=== PATIENT | female | born 1970 | race African-American/Black ===

== ENCOUNTER 2019-09-03 15:15 | IRF | payer OTHER, SELFPAY ==
--- NOTE | 2019-09-03 15:18 | ADMGEN ---
This patient, Ani Roger, was admitted to [facility] Room 221-01. Patient/family oriented to hospital policies and general routines including ID bracelet, bed and alarms, visiting hours, pain management, procedures, bathroom and other care routines, personal items, smoking policy, room service/diet, and visiting hours. Valuables list has been completed. Information on how to activate the Rapid Response Team has been discussed. Patient/Family are encouraged to report perceived risks to care and to ask questions if they do not understand what they are told or what they should do.
[2019-09-03 15:42] VITALS: BP 150/103; PULSE 96; RESP 18; TEMP 37.3; O2SAT 100
[2019-09-03 21:19] VITALS: BP 129/94; PULSE 104; RESP 16; TEMP 37.6; O2SAT 99
[2019-09-03 22:35] VITALS: BMI 29.3
[2019-09-04 05:14] LABS: Basophils Percent Auto 0.2 % (0.2-1.2); Eosinophils Absolute Auto 0.4 K/mm3 (0-0.3); Eosinophils Percent Auto 7.7 % (0-4.4); Hematocrit 37.5 % (37.0-47.0); Hemoglobin 12.5 g/dL (12.0-15.0); Immature Granulocyte Absolute 0.01 K/mm3 (0.00-0.031); Immature Granulocyte Percent A 0.2 % (0-0.5); Lymphocytes Absolute Auto 1.85 K/mm3 (0.9-3.2); Lymphocytes Percent Auto 36.4 % (18.3-44.2); Mean Corpuscular HGB Conc 33.3 g/dl (32-36); Mean Corpuscular Hemoglobin 27.7 pg (26-34); Mean Corpuscular Volume 83.1 fl (80-100); Mean Platelet Volume 9.2 fl (7.4-10.4); Monocytes Absolute Auto 0.6 K/mm3 (0.1-0.6); Monocytes Percent Auto 12.4 % (2.6-8.5); Neutrophils Absolute Auto 2.2 K/mm3 (1.3-6.7); Neutrophils Percent Auto 43.1 % (45.5-73.1); Platelet Count Result 317 k/mm3 (150-375); Red Blood Count 4.51 M/mm3 (4.2-5.4); White Blood Count 5.1 K/mm3 (4.5-10.0)
[2019-09-04 05:39] LABS: Blood Urea Nitrogen 25 mg/dL (7-17); Calcium 9.7 mg/dL (8.4-10.2); Carbon Dioxide 24 mmol/L (22-30); Chloride 106 mmol/L (98-107); Cholesterol 166 mg/dL (0-200); Estimated CRCL calculation 52 ml/min; Estimated Glomerular Filt Rate 53; Glucose 105 mg/dL (65-105); HDL Direct 43 mg/dL; Potassium 4.2 mmol/L (3.4-5.0); Sodium 137 mmol/L (137-145); Triglycerides 90 mg/dL (<150)
[2019-09-04 05:50] LABS: LDL Cholesterol Direct 90 mg/dL
[2019-09-04 06:00] VITALS: BP 123/88; PULSE 72; RESP 20; TEMP 36.2; O2SAT 100
[2019-09-04] MEDS: ASPIRIN 325 MG TABLET PO (09:46)
[2019-09-04] MEDS: AMLODIPINE BESYLATE 5 MG TABLET PO (09:46)
[2019-09-04] MEDS: FERROUS SULFATE 324 MG TABLET PO (09:46)
[2019-09-04] MEDS: ATORVASTATIN 20 MG TABLET PO (09:46)
[2019-09-04] MEDS: PANTOPRAZOLE 40 MG TABLET PO (09:47)
[2019-09-04] MEDS: THIAMINE HCL 100 MG TABLET PO (09:47)
--- NOTE | 2019-09-04 11:58 | REHAB_ITS ---
DATE OF SERVICE: 09/04/2019 This 48 years old right-handed female has been admitted to the rehab of [facility] with the primary rehab impairment category of a stroke and the etiological diagnosis of right frontoparietal distribution stroke. The patient was seen [id number] at 10:15 a.m. on 09/04/2019. HISTORY OF PRESENT ILLNESS: This 48 years old right-handed female with comorbid condition of 1. Bronchial asthma. 2. Hypertension. 3. Seizure disorder. 4. Alcoholism. Presented to [facility] on 08/28/2019, subsequent to fall around 2:30 a.m. She had crawled to her bedroom and kept lying on the floor. In the morning, she called her primary care physician who advised her to present to the hospital. EMS report responded and took her to [facility] where CT scan was done, which was reportedly abnormal. She was transferred to [facility] for further stroke evaluation, there MRI was consistent with acute infarction involving the high right posterior frontal and parietal cortices. Duplex study of the carotid was negative for any significant stenosis. Echocardiogram documented 75% ejection fraction and no PFO. Neurology Service was consulted and allowed for permissive hypertension. She was started on aspirin and statin. She was continued on hydrochlorothiazide and losartan. She was counseled on alcohol and tobacco cessation. She was diagnosed with a urinary tract infection, was started on Cipro. She passed her swallowing test and was on regular diet with thin liquids. Physical examination continued to reveal left-sided weakness, decreased gross motor control, impaired balance. She was discharged to rehab on Lovenox for DVT prophylaxis. The patient has not traveled outside the [place] or had contact with someone who is ill that has traveled outside the [place] in the past 21 days. The patient has not traveled to an area of the [place] that is experiencing known transmission of the coronavirus and has not had close personal contact with anyone that has. The patient does not have a fever, does not have experience any lower respiratory illness symptoms. Therapy was initiated at the acute care facility and the patient was transferred to from [facility] on 09/03/2019. SURGERY OR FALL: The patient has had no major surgery in the last 100 days prior to admission. She has had fall in the past year, particularly for this admission due to stroke, but had no injury. PAST MEDICAL HISTORY: Bronchial asthma, uncontrolled hypertension, stroke, hyperlipidemia, tobacco abuse, and alcohol abuse. PAST SURGICAL HISTORY: None. SOCIAL HISTORY: The patient lives with her aunt in a one-level home with the level entrance. She was completely independent previously with no assistive device. Her aunt is home most of the time. The patient fell as a result of a stroke, but had no falls prior to this. She has no major surgery history. Current everyday smoker and binge drink alcohol last time over a month ago. FAMILY HISTORY: Mother has COPD. Father, hypertension and stroke. PRIOR LEVEL OF FUNCTION: Eating was independent. Oral care was independent. Toilet hygiene was independent. Shower-bathing was independent. Upper body was independent. Lower body was independent. Footwear was independent. Rolling left and right was independent. Sit to lying was independent. Lying to sitting was independent. [id number] is independent. [id number]-el-[id number] transfer independent. Toilet transfer independent. The patient was previously ambulating independently without a device. She was able to complete 5 stairs independently. CURRENT LEVEL OF FUNCTION: Eating is independent. She required partial and moderate assistance for oral care, toileting hygiene, shower and bathing, upper body,
[2019-09-04 14:00] VITALS: BP 138/76; PULSE 86; RESP 18; TEMP 36.6; O2SAT 100
[2019-09-04] MEDS: TRAMADOL HCL 50 MG TABLET PO (17:20)
[2019-09-04 22:00] VITALS: BP 106/62; PULSE 85; RESP 18; TEMP 36.4; O2SAT 100
[2019-09-05 06:00] VITALS: BP 115/80; PULSE 77; RESP 18; TEMP 36.4; O2SAT 99
[2019-09-05] MEDS: FERROUS SULFATE 324 MG TABLET PO (09:11)
[2019-09-05] MEDS: TRAMADOL HCL 50 MG TABLET PO ×2 (09:11→20:17)
[2019-09-05] MEDS: ATORVASTATIN 20 MG TABLET PO (09:12)
[2019-09-05] MEDS: THIAMINE HCL 100 MG TABLET PO (09:12)
[2019-09-05] MEDS: AMLODIPINE BESYLATE 5 MG TABLET PO (09:12)
[2019-09-05] MEDS: PANTOPRAZOLE 40 MG TABLET PO (09:12)
[2019-09-05] MEDS: ASPIRIN 325 MG TABLET PO (09:12)
[2019-09-05 14:00] VITALS: BP 128/72; PULSE 80; RESP 18; TEMP 36.7; O2SAT 100
[2019-09-05 20:00] VITALS: PULSE 80; RESP 18; O2SAT 100
[2019-09-05 22:00] VITALS: BP 117/77; PULSE 89; RESP 20; TEMP 36.7; O2SAT 99
[2019-09-06] MEDS: TRAMADOL HCL 50 MG TABLET PO ×2 (05:31→19:53)
[2019-09-06 06:00] VITALS: BP 114/71; PULSE 98; RESP 20; TEMP 36.9; O2SAT 100
[2019-09-06] MEDS: ASPIRIN 325 MG TABLET PO (08:51)
[2019-09-06] MEDS: AMLODIPINE BESYLATE 5 MG TABLET PO (08:51)
[2019-09-06] MEDS: FERROUS SULFATE 324 MG TABLET PO (08:51)
[2019-09-06] MEDS: THIAMINE HCL 100 MG TABLET PO (08:51)
[2019-09-06] MEDS: PANTOPRAZOLE 40 MG TABLET PO (08:51)
[2019-09-06] MEDS: ATORVASTATIN 20 MG TABLET PO (08:51)
--- NOTE | 2019-09-06 11:06 | WPDNEURORHBP ---
Subjective Date/time seen: right FP stroke with Hypertension and SD also [id number]/13/20 11:06 Review of Systems Review of Systems: All systems reviewed & are unremarkable except as noted in HPI and below Functional Status Ambulation Ability Ability to Ambulate 10 Feet: Minimum Assistance X 1 Ability to Ambulate 50 Feet With 2 Turns: Minimum Assistance X 1 Ability to Ambulate 150 Feet: Minimum Assistance X 1 Ambulation Assistive Devices: Cane Transfers Ability Ability to Transfer In/Out of Chair: Contact Guard Exam Const: General: cooperative, comfortable and no acute distress Eyes: General: appearance normal, both eyes and all related structures Neck: Neck: normal visual inspection, full ROM and no lymphadenopathy Carotids: normal carotid upstroke and bounding pulses Lymphatic: no lymphadenopathy noted Chest: Chest palpation & inspection: normal palpation of entire chest wall Resp: Effort & Inspection: normal respiratory effort and able to speak in complete sentences Auscultation: clear to auscultation bilaterally Cardio: Rate: regular rate Rhythm: regular rhythm GI: Auscultation: normal bowel sounds Skin: General skin exam: no rashes or lesions noted Neuro: General: patient oriented x3 and moves all extremities Cranial nerves: Yes CN's II-XII intact bilaterally, Yes Nystagmus not present, Yes Normal facial strength present, Yes Midline tongue present, Yes Symmetric palate elevation present, Yes Normal hearing present, Yes Ability to bilaterally rotate head present and Yes Ability to bilaterally elevate shoulders present Cognition (Neuro): normal cognition Speech: normal speech Gait exam (Neuro): Other gait observations present Motor exam (neuro): Abnormal motor strength present Plantar Reflex Responses: downgoing: right and upgoing (positive Babinski): left Coordination: [id number] test normal Psych: Appearance: grossly normal Affect: normal affect Attitude: cooperative Thought process: Normal thought process present Thought content: Yes Normal thought content present Insight: Fair insight present (Psych) Judgement: Fair judgement present (Psych) Objective Data Vital Signs Vital Signs: Vital Signs - 24 hr 09/05/19 14:00 09/05/19 20:00 09/05/19 22:00 Temperature 36.7 C 36.7 C Pulse Rate 80 80 89 Respiratory Rate 18 18 20 Blood Pressure 128/72 117/77 Pulse Oximetry 100 100 99 09/06/19 06:00 Temperature 36.9 C Pulse Rate 98 Respiratory Rate 20 Blood Pressure 114/71 Pulse Oximetry 100 Intake/Output Intake/Output: Intake & Output 09/03/19 09/04/19 09/05/19 09/06/19 23:59 23:59 23:59 23:59 Intake Total 240 720 720 240 Balance 240 720 720 240 Meds/Results Medications: Active Medications Generic Name Dose Route Start Last Admin Trade Name Freq PRN Reason Stop Dose Admin Albuterol 2 puff 09/03/19 16:24 Proventil Hfa INHALATION Q4H PRN Wheezing Amlodipine Besylate 5 mg 09/04/19 09:00 09/06/19 08:51 Norvasc PO 5 mg DAILY JOSE Administration Aspirin 325 mg 09/04/19 09:00 09/06/19 08:51 Aspirin PO 325 mg DAILY JOSE Administration Atorvastatin Calcium 20 mg 09/04/19 09:00 09/06/19 08:51 Lipitor PO 20 mg DAILY JOSE Administration Ferrous Sulfate 324 mg 09/04/19 08:00 09/06/19 08:51 Ferrous Sulfate PO 324 mg DAILY@0800 JOSE Administration Pantoprazole Sodium 40 mg 09/04/19 09:00 09/06/19 08:51 Protonix PO 40 mg QAM JOSE Administration Thiamine HCl 100 mg 09/04/19 09:00 09/06/19 08:51 Vitamin B-1 PO 100 mg DAILY JOSE Administration Tramadol HCl 50 mg 09/03/19 16:24 09/06/19 05:31 Ultram PO 50 mg Q6H PRN Administration Pain Progress Note: A&P Assessment and Plan (1) Stroke: Code(s): I63.9 - Cerebral infarction, unspecified Status: Acute (2) Hypertension: Code(s): I10 - Essential (primary) hypertension Status: Acute (3) Seizure disorder:
[2019-09-06 12:38] VITALS: BMI 29.3
[2019-09-06 14:00] VITALS: BP 134/89; PULSE 102; RESP 20; TEMP 36.2; O2SAT 100
--- NOTE | 2019-09-06 16:17 | RPD ---
INDIVIDUALIZED PLAN OF CARE FOR Ani Roger Brief Synthesis of Pre-Admission Screen, Post-Admission Evaluation and Therapy Evaluations: The patient presents to rehab with a right frontoparietal distribution stroke. Comorbidities include uncontrolled hypertension, nicotine addiction, binge alcohol drinking with seizure, asthma, klebsiella urinary tract infection, left-sided numbness and weakness. The patient needs physician monitoring and treatment of uncontrolled hypertension, monitoring for adverse reactions to new medications, and monitoring for infection. The patient requires nursing services for frequent neuro checks, anticoagulation therapy, medication management and education, pressure relief and skin care management, monitoring of labs, and fall/safety precautions. Deficits include:ADLs, Balance, Endurance, Family Training/Education, Mobility, Pain Management, ROM, Safety, Strength, and Transfers. Bindery Chief/Case Management for: Discharge Planning and Patient/Family Counseling Physical Therapy: 5 days per week for 90 minutes. Treatments may include: Therapeutic Exercise, Gait Training, Neuromuscular Re-education, Transfer Training, Community Reintegration, Bed Mobility, Patient/Family Education, Wheelchair Mobility Group Therapy/Concurrent Therapy Rationales: -Improve attention span during functional activities in a distracted environment. -Enhance problem solving and/or adequate judgment skills during functional activities in a distracted environment. -Promote increased safety awareness in a distracted environment to reduce fall risk with functional tasks, transfers, and ambulation to allow a more safe, self-sufficient return to the home environment. -Improve dynamic balance skills to promote safety and independence with functional activities in a distracted environment for maximum gain. Occupational Therapy: 5 days per week for 90 minutes. Treatments may include: Therapeutic Exercise, Therapeutic Activity, Cognitive Training, Self-Care Transfer Training, Community Reintegration, Home Management, Patient/Family Education, Wheelchair Mobility Training, Energy Conservation Training Group Therapy/Concurrent Therapy Rationales: -Allow therapist to observe and teach generalization and carry-over of skills learned in individual therapy. -Enhance problem solving and sequencing skills during therapeutic activities in a distracted environment. -Promote increased safety awareness in a realistic setting to reduce fall risk with functional tasks due to visual and verbal distractions. -Increase functional level with ADLs, ADL transfers and use of adaptive equipment through therapeutic activities with others while promoting safety to allow a more safe, self-sufficient return home. Medical Prognosis: Good Anticipated Length of Stay: 10 days Rehab Goals: Eating Goal: 06-Independent Oral Hygiene Goal: 06-Independent Toileting Hygiene Goal: 06-Independent Shower/Bathe Self Goal: 06-Independent Upper Body Dressing Goal: 06-Independent Lower Body Dressing Goal: 06-Independent Putting On/Taking Off Footwear Goal: 06-Independent Rolling Left and Right Goal: 06-Independent Sit to Lying Goal: 06-Independent Lying to Sitting on Side of Bed Goal: 06-Independent Sit to Stand Goal: 06-Independent Chair/Hnm-xj-Hfppd Transfer Goal: 06-Independent Toilet Transfer Goal: 06-Independent Car Transfer Goal: 06-Independent Walk 10' Goal: 06-Independent Walk 50' with Two Turns Goal: 06-Independent Walk 150' Goal: 06-Independent Walk 10' on Uneven Surface Goal: 06-Independent 1 Step (Curb) Goal: 06-Independent 4 Steps Goal: 06-Independent 12 Steps Goal Score: 06-Independent Picking Up Object Goal: 06-Independent Wheel 50' with Two Turns Score: 09-Not Applicable Wheel 150' Goal: 09-Not Applicable Anticipated discharge destination: Home
[2019-09-06 21:10] VITALS: BP 127/77; PULSE 89; RESP 16; TEMP 36.9; O2SAT 98
[2019-09-07 06:00] VITALS: BP 141/79; PULSE 76; RESP 20; TEMP 36.7; O2SAT 100
--- NOTE | 2019-09-07 08:35 | PCPTNOTE ---
Ani Roger was evaluated for a straight cane on 09/07/2019 by this physical therapist bricklayer's assistant. The straight cane will resolve patient's mobility limitations and will be used for ADL's within the home. The patient can safely use the straight cane. ?The straight cane will resolve the patient?s mobility deficits, including decreased standing balance and decreased strength.
[2019-09-07] MEDS: ATORVASTATIN 20 MG TABLET PO (09:17)
[2019-09-07] MEDS: THIAMINE HCL 100 MG TABLET PO (09:17)
[2019-09-07] MEDS: PANTOPRAZOLE 40 MG TABLET PO (09:17)
[2019-09-07] MEDS: ASPIRIN 325 MG TABLET PO (09:17)
[2019-09-07] MEDS: FERROUS SULFATE 324 MG TABLET PO (09:17)
[2019-09-07] MEDS: AMLODIPINE BESYLATE 5 MG TABLET PO (09:17)
--- NOTE | 2019-09-07 12:28 | WPDNEURORHBP ---
Subjective Date/time seen: 09/07/19 12:28 Interval history: this 48-year-old Afro-Faro[place] woman is here after having had right frontoparietal stroke which has left her with the left hemiparesis from which she is improving really quickly does not have any new complaints particularly denies any new neurological symptoms denies any headache nausea vomiting double vision blurred vision fever chills sore throat Review of Systems Review of Systems: All systems reviewed & are unremarkable except as noted in HPI and below Functional Status Ambulation Ability Ability to Ambulate 10 Feet: Standby Assistance Ability to Ambulate 50 Feet With 2 Turns: Standby Assistance Ability to Ambulate 150 Feet: Standby Assistance Ambulation Assistive Devices: Cane Transfers Ability Ability to Transfer In/Out of Chair: Standby Assistance Exam Const: General: comfortable and no acute distress HENMT: General nose exam: Normal nares present Mouth: Yes moist mucous membranes Eyes: General: appearance normal, both eyes and all related structures Neck: Neck: supple and no JVD Resp: Effort & Inspection: normal respiratory effort Auscultation: clear to auscultation bilaterally Cardio: Rate: regular rate Rhythm: regular rhythm GI: GI Palp: Yes Soft to palpation Auscultation: normal bowel sounds Skin: General skin exam: normal color and no rashes or lesions noted Neuro: Other: patient is awake alert has a decent speech and language function improving left-sided hemiparesis and quite eager to go home as we had discussed on September 10, 2019 she is able to walk over 200 feet has good report from our therapists team Extrem: General: normal to inspection Psych: Mental Status: mental status grossly normal Objective Data Vital Signs Vital Signs: Vital Signs - 24 hr 09/06/19 14:00 09/06/19 21:10 09/07/19 06:00 Temperature 36.2 C L 36.9 C 36.7 C Pulse Rate 102 H 89 76 Respiratory Rate 20 16 20 Blood Pressure 134/89 127/77 141/79 H Pulse Oximetry 100 98 100 Intake/Output Intake/Output: Intake & Output 09/04/19 09/05/19 09/06/19 09/07/19 23:59 23:59 23:59 23:59 Intake Total 720 720 720 240 Balance 720 720 720 240 Meds/Results Medications: Active Medications Generic Name Dose Route Start Last Admin Trade Name Freq PRN Reason Stop Dose Admin Albuterol 2 puff 09/03/19 16:24 Proventil Hfa INHALATION Q4H PRN Wheezing Amlodipine Besylate 5 mg 09/04/19 09:00 09/07/19 09:17 Norvasc PO 5 mg DAILY JOSE Administration Aspirin 325 mg 09/04/19 09:00 09/07/19 09:17 Aspirin PO 325 mg DAILY JOSE Administration Atorvastatin Calcium 20 mg 09/04/19 09:00 09/07/19 09:17 Lipitor PO 20 mg DAILY JOSE Administration Ferrous Sulfate 324 mg 09/04/19 08:00 09/07/19 09:17 Ferrous Sulfate PO 324 mg DAILY@0800 JOSE Administration Pantoprazole Sodium 40 mg 09/04/19 09:00 09/07/19 09:17 Protonix PO 40 mg QAM JOSE Administration Thiamine HCl 100 mg 09/04/19 09:00 09/07/19 09:17 Vitamin B-1 PO 100 mg DAILY JOSE Administration Tramadol HCl 50 mg 09/03/19 16:24 09/06/19 19:53 Ultram PO 50 mg Q6H PRN Administration Pain Progress Note: A&P Assessment and Plan (1) Bronchial asthma: Code(s): J45.909 - Unspecified asthma, uncomplicated Status: Acute (2) Seizure disorder: Code(s): G40.909 - Epilepsy, unspecified, not intractable, without status epilepticus Status: Acute (3) Hypertension: Code(s): I10 - Essential (primary) hypertension Status: Acute (4) Stroke: Code(s): I63.9 - Cerebral infarction, unspecified Status: Acute (5) Left hemiparesis: Code(s): G81.94 - Hemiplegia, unspecified affecting left nondominant side Status: Acute (6) Alcoholism: Code(s): F10.20 - Alcohol dependence, uncomplicated Status: Acute Additional Plan discussed in the team conference questions
[2019-09-07 12:51] VITALS: PULSE 74; RESP 18
--- NOTE | 2019-09-07 13:46 | PCPTNOTE ---
Ani Roger was evaluated for a straight cane on 09/07/2019 by this physical therapist. The straight cane will resolve patient's mobility limitations and will be used for ADL's within the home. The patient can safely use the straight cane. ?The straight cane will resolve the patient?s mobility deficits, including impaired balance and functional activity tolerance. Kelley Sanders, PT, DPT
[2019-09-07 14:00] VITALS: BP 138/82; PULSE 79; RESP 18; TEMP 36.9; O2SAT 100
[2019-09-07] MEDS: TRAMADOL HCL 50 MG TABLET PO ×3 (15:29→21:38)
[2019-09-07 22:00] VITALS: BP 129/76; PULSE 82; RESP 18; TEMP 37.2; O2SAT 100
[2019-09-08] MEDS: TRAMADOL HCL 50 MG TABLET PO ×3 (04:37→20:16)
[2019-09-08 06:00] VITALS: BP 142/64; PULSE 79; RESP 18; TEMP 37.1; O2SAT 99
[2019-09-08] MEDS: PANTOPRAZOLE 40 MG TABLET PO (09:21)
[2019-09-08] MEDS: AMLODIPINE BESYLATE 5 MG TABLET PO (09:21)
[2019-09-08] MEDS: ASPIRIN 325 MG TABLET PO (09:21)
[2019-09-08] MEDS: FERROUS SULFATE 324 MG TABLET PO (09:21)
[2019-09-08] MEDS: ATORVASTATIN 20 MG TABLET PO (09:21)
[2019-09-08] MEDS: THIAMINE HCL 100 MG TABLET PO (09:22)
[2019-09-08 14:00] VITALS: BP 125/81; PULSE 73; RESP 16; TEMP 36.6; O2SAT 100
--- NOTE | 2019-09-08 14:36 | WPDNEURORHBP ---
Subjective Date/time seen: 09/08/19 14:36 Interval history: this 48-year-old woman is here after having had stroke with left-sided socorro paresis doing fairly well denies any headache nausea vomiting fevers chills sore throat abdominal pain She is making good progress Review of Systems Review of Systems: All systems reviewed & are unremarkable except as noted in HPI and below Functional Status Ambulation Ability Ability to Ambulate 10 Feet: Standby Assistance Ability to Ambulate 50 Feet With 2 Turns: Standby Assistance Ability to Ambulate 150 Feet: Standby Assistance Ambulation Assistive Devices: Cane Transfers Ability Ability to Transfer In/Out of Chair: Independent Exam Const: General: comfortable and no acute distress HENMT: General nose exam: Normal nares present Mouth: Yes moist mucous membranes Eyes: General: appearance normal, both eyes and all related structures Neck: Neck: supple and no JVD Resp: Effort & Inspection: normal respiratory effort Auscultation: clear to auscultation bilaterally Cardio: Rate: regular rate Rhythm: regular rhythm GI: GI Palp: Yes Soft to palpation Auscultation: normal bowel sounds Skin: General skin exam: normal color and no rashes or lesions noted Neuro: Other: is awake alert well oriented time place and person has normal speech and language function improving left-sided hemiparesis Extrem: General: normal to inspection Psych: Mental Status: mental status grossly normal Objective Data Vital Signs Vital Signs: Vital Signs - 24 hr 09/07/19 22:00 09/08/19 06:00 Temperature 37.2 C 37.1 C Pulse Rate 82 79 Respiratory Rate 18 18 Blood Pressure 129/76 142/64 H Pulse Oximetry 100 99 Intake/Output Intake/Output: Intake & Output 09/05/19 09/06/19 09/07/19 09/08/19 23:59 23:59 23:59 23:59 Intake Total 720 720 720 960 Balance 720 720 720 960 Meds/Results Medications: Active Medications Generic Name Dose Route Start Last Admin Trade Name Freq PRN Reason Stop Dose Admin Albuterol 2 puff 09/03/19 16:24 Proventil Hfa INHALATION Q4H PRN Wheezing Amlodipine Besylate 5 mg 09/04/19 09:00 09/08/19 09:21 Norvasc PO 5 mg DAILY JOSE Administration Aspirin 325 mg 09/04/19 09:00 09/08/19 09:21 Aspirin PO 325 mg DAILY JOSE Administration Atorvastatin Calcium 20 mg 09/04/19 09:00 09/08/19 09:21 Lipitor PO 20 mg DAILY JOSE Administration Ferrous Sulfate 324 mg 09/04/19 08:00 09/08/19 09:21 Ferrous Sulfate PO 324 mg DAILY@0800 JOSE Administration Pantoprazole Sodium 40 mg 09/04/19 09:00 09/08/19 09:21 Protonix PO 40 mg QAM JOSE Administration Thiamine HCl 100 mg 09/04/19 09:00 09/08/19 09:22 Vitamin B-1 PO 100 mg DAILY JOSE Administration Tramadol HCl 50 mg 09/03/19 16:24 09/08/19 12:34 Ultram PO 50 mg Q6H PRN Administration Pain Progress Note: A&P Assessment and Plan (1) Alcoholism: Code(s): F10.20 - Alcohol dependence, uncomplicated Status: Acute (2) Left hemiparesis: Code(s): G81.94 - Hemiplegia, unspecified affecting left nondominant side Status: Acute (3) Bronchial asthma: Code(s): J45.909 - Unspecified asthma, uncomplicated Status: Acute (4) Seizure disorder: Code(s): G40.909 - Epilepsy, unspecified, not intractable, without status epilepticus Status: Acute (5) Hypertension: Code(s): I10 - Essential (primary) hypertension Status: Acute (6) Stroke: Code(s): I63.9 - Cerebral infarction, unspecified Status: Acute Additional Plan we will continue present medical management PT OT and gait training
[2019-09-08 22:00] VITALS: BP 128/81; PULSE 79; RESP 18; TEMP 36.9; O2SAT 98
[2019-09-09] MEDS: TRAMADOL HCL 50 MG TABLET PO ×2 (03:23→19:47)
[2019-09-09 06:00] VITALS: BP 125/80; PULSE 70; RESP 17; TEMP 36.7; O2SAT 100
[2019-09-09] MEDS: FERROUS SULFATE 324 MG TABLET PO (09:08)
[2019-09-09] MEDS: ATORVASTATIN 20 MG TABLET PO (09:08)
[2019-09-09] MEDS: PANTOPRAZOLE 40 MG TABLET PO (09:08)
[2019-09-09] MEDS: AMLODIPINE BESYLATE 5 MG TABLET PO (09:08)
[2019-09-09] MEDS: ASPIRIN 325 MG TABLET PO (09:08)
[2019-09-09] MEDS: THIAMINE HCL 100 MG TABLET PO (09:08)
[2019-09-09] MEDS: DOCUSATE SODIUM 100 MG CAPSULE PO ×2 (09:12→19:49)
[2019-09-09] MEDS: polyethylene glycoL 3350 17 GM POWD.PACK PO (09:15)
--- NOTE | 2019-09-09 11:23 | WPDNEURORHBP ---
Subjective Date/time seen: 09/09/19 11:23 Interval history: this 48-year-old woman is here after suffering from right frontoparietal distribution stroke with the mild hemiparesis she has done excellent in over rehab and has gained quite a bit discharge planning is in progress and she will get outpatient PT, she denies any headache nausea vomiting chest pain shortness breath fever chills or sore throat Review of Systems Review of Systems: All systems reviewed & are unremarkable except as noted in HPI and below Functional Status Ambulation Ability Ability to Ambulate 10 Feet: Standby Assistance Ability to Ambulate 50 Feet With 2 Turns: Standby Assistance Ability to Ambulate 150 Feet: Standby Assistance Ambulation Assistive Devices: Cane Transfers Ability Ability to Transfer In/Out of Chair: Independent Exam Const: General: comfortable and no acute distress HENMT: General nose exam: Normal nares present Mouth: Yes moist mucous membranes Eyes: General: appearance normal, both eyes and all related structures Neck: Neck: no JVD Resp: Effort & Inspection: normal respiratory effort Auscultation: clear to auscultation bilaterally Cardio: Rate: regular rate Rhythm: regular rhythm GI: GI Palp: Yes Soft to palpation Auscultation: normal bowel sounds Skin: General skin exam: normal color and no rashes or lesions noted Neuro: Other: patient is awake and alert will oriented in time place person speech and language functions are normal left-sided hemiparesis is improving Extrem: General: normal to inspection Psych: Mental Status: mental status grossly normal Objective Data Vital Signs Vital Signs: Vital Signs - 24 hr 09/08/19 14:00 09/08/19 22:00 09/09/19 06:00 Temperature 36.6 C 36.9 C 36.7 C Pulse Rate 73 79 70 Respiratory Rate 16 18 17 Blood Pressure 125/81 128/81 125/80 Pulse Oximetry 100 98 100 Intake/Output Intake/Output: Intake & Output 09/06/19 09/07/19 09/08/19 09/09/19 23:59 23:59 23:59 23:59 Intake Total 370 400 5600 360 Balance 444 714 8253 360 Meds/Results Medications: Active Medications Generic Name Dose Route Start Last Admin Trade Name Freq PRN Reason Stop Dose Admin Albuterol 2 puff 09/03/19 16:24 Proventil Hfa INHALATION Q4H PRN Wheezing Amlodipine Besylate 5 mg 09/04/19 09:00 09/09/19 09:08 Norvasc PO 5 mg DAILY JOSE Administration Aspirin 325 mg 09/04/19 09:00 09/09/19 09:08 Aspirin PO 325 mg DAILY JOSE Administration Atorvastatin Calcium 20 mg 09/04/19 09:00 09/09/19 09:08 Lipitor PO 20 mg DAILY JOSE Administration Docusate Sodium 100 mg 09/09/19 10:00 09/09/19 09:12 Colace Capsule PO 100 mg Q12HR JOSE Administration Ferrous Sulfate 324 mg 09/04/19 08:00 09/09/19 09:08 Ferrous Sulfate PO 324 mg DAILY@0800 JOSE Administration Pantoprazole Sodium 40 mg 09/04/19 09:00 09/09/19 09:08 Protonix PO 40 mg QAM JOSE Administration Polyethylene Glycol 17 gm 09/09/19 09:15 09/09/19 09:15 Miralax PO 09/10/19 09:01 17 gm QAM JOES Administration Thiamine HCl 100 mg 09/04/19 09:00 09/09/19 09:08 Vitamin B-1 PO 100 mg DAILY JOSE Administration Tramadol HCl 50 mg 09/03/19 16:24 09/09/19 03:23 Ultram PO 50 mg Q6H PRN Administration Pain Progress Note: A&P Assessment and Plan (1) Alcoholism: Code(s): F10.20 - Alcohol dependence, uncomplicated Status: Acute (2) Left hemiparesis: Code(s): G81.94 - Hemiplegia, unspecified affecting left nondominant side Status: Acute (3) Bronchial asthma: Code(s): J45.909 - Unspecified asthma, uncomplicated Status: Acute (4) Seizure disorder: Code(s): G40.909 - Epilepsy, unspecified, not intractable, without status epilepticus Status: Acute (5) Hypertension: Code(s): I10 - Essential (primary) hypertension Status: Acute (6) Stroke: Code(s): I63.9 - C
[2019-09-09 14:00] VITALS: BP 144/84; PULSE 74; RESP 18; TEMP 36.3; O2SAT 99
[2019-09-09 22:00] VITALS: BP 151/86; PULSE 74; RESP 16; TEMP 36.3; O2SAT 100
[2019-09-10 06:00] VITALS: BP 148/87; PULSE 64; RESP 20; TEMP 36.1; O2SAT 100
[2019-09-10] MEDS: TRAMADOL HCL 50 MG TABLET PO ×2 (06:30→13:30)
[2019-09-10] MEDS: ASPIRIN 325 MG TABLET PO (09:01)
[2019-09-10] MEDS: AMLODIPINE BESYLATE 5 MG TABLET PO (09:01)
[2019-09-10] MEDS: FERROUS SULFATE 324 MG TABLET PO (09:01)
[2019-09-10] MEDS: ATORVASTATIN 20 MG TABLET PO (09:01)
[2019-09-10] MEDS: THIAMINE HCL 100 MG TABLET PO (09:01)
[2019-09-10] MEDS: polyethylene glycoL 3350 17 GM POWD.PACK PO (09:02)
[2019-09-10] MEDS: DOCUSATE SODIUM 100 MG CAPSULE PO (09:02)
[2019-09-10] MEDS: PANTOPRAZOLE 40 MG TABLET PO (09:02)
--- NOTE | 2019-09-10 10:46 | WPDNEURORHBP ---
Subjective Date/time seen: 09/10/19 10:46 Interval history: This 48-year-old has completed her PT OT after having had a stroke with right cerebral hemisphere which had left her with left hemiparesis she is essentially almost independent and ready to be discharged today does not have any new specific complaints particularly denies any headache nausea vomiting chest pain shortness of breath fever chills or sore throat Review of Systems Review of Systems: All systems reviewed & are unremarkable except as noted in HPI and below Functional Status Ambulation Ability Ability to Ambulate 10 Feet: Independent Ability to Ambulate 50 Feet With 2 Turns: Independent Ability to Ambulate 150 Feet: Standby Assistance Ambulation Assistive Devices: Cane Transfers Ability Ability to Transfer In/Out of Chair: Independent Exam Const: General: comfortable and no acute distress HENMT: General nose exam: Normal nares present Mouth: Yes moist mucous membranes Eyes: General: appearance normal, both eyes and all related structures Neck: Neck: supple and no JVD Resp: Effort & Inspection: normal respiratory effort Auscultation: clear to auscultation bilaterally Cardio: Rate: regular rate Rhythm: regular rhythm GI: GI Palp: Yes Soft to palpation Auscultation: normal bowel sounds Skin: General skin exam: normal color and no rashes or lesions noted Neuro: Other: patient is awake and alert will oriented in time place and person with normal speech and language function and significantly below left-sided hemiparesis where she is almost independent and will be requiring outpatient PT Extrem: General: normal to inspection Psych: Mental Status: mental status grossly normal Objective Data Vital Signs Vital Signs: Vital Signs - 24 hr 09/09/19 14:00 09/09/19 22:00 09/10/19 06:00 Temperature 36.3 C L 36.3 C L 36.1 C L Pulse Rate 74 74 64 Respiratory Rate 18 16 20 Blood Pressure 144/84 H 151/86 H 148/87 H Pulse Oximetry 99 100 100 Intake/Output Intake/Output: Intake & Output 09/07/19 09/08/19 09/09/19 09/10/19 23:59 23:59 23:59 23:59 Intake Total 720 1200 1320 240 Balance 720 1200 1320 240 Meds/Results Medications: Active Medications Generic Name Dose Route Start Last Admin Trade Name Freq PRN Reason Stop Dose Admin Albuterol 2 puff 09/03/19 16:24 Proventil Hfa INHALATION Q4H PRN Wheezing Amlodipine Besylate 5 mg 09/04/19 09:00 09/10/19 09:01 Norvasc PO 5 mg DAILY JOSE Administration Aspirin 325 mg 09/04/19 09:00 09/10/19 09:01 Aspirin PO 325 mg DAILY JOSE Administration Atorvastatin Calcium 20 mg 09/04/19 09:00 09/10/19 09:01 Lipitor PO 20 mg DAILY JOSE Administration Docusate Sodium 100 mg 09/09/19 10:00 09/10/19 09:02 Colace Capsule PO 100 mg Q12HR JOSE Administration Ferrous Sulfate 324 mg 09/04/19 08:00 09/10/19 09:01 Ferrous Sulfate PO 324 mg DAILY@0800 [facility] Administration Pantoprazole Sodium 40 mg 09/04/19 09:00 09/10/19 09:02 Protonix PO 40 mg QAM JOSE Administration Thiamine HCl 100 mg 09/04/19 09:00 09/10/19 09:01 Vitamin B-1 PO 100 mg DAILY JOSE Administration Tramadol HCl 50 mg 09/03/19 16:24 09/10/19 06:30 Ultram PO 50 mg Q6H PRN Administration Pain Progress Note: A&P Assessment and Plan (1) Alcoholism: Code(s): F10.20 - Alcohol dependence, uncomplicated Status: Acute (2) Left hemiparesis: Code(s): G81.94 - Hemiplegia, unspecified affecting left nondominant side Status: Acute (3) Bronchial asthma: Code(s): J45.909 - Unspecified asthma, uncomplicated Status: Acute (4) Seizure disorder: Code(s): G40.909 - Epilepsy, unspecified, not intractable, without status epilepticus Status: Acute (5) Hypertension: Code(s): I10 - Essential (primary) hypertension Status: Acute (6) Stroke: Code(s): I63.9 - Cerebral infarction,
--- NOTE | 2019-09-13 12:13 | DS_ITS ---
DATE OF DISCHARGE: 09/10/2019 DISCHARGE ACUTE REHABILITATION DIAGNOSES: Primary rehab impairment category of stroke with etiological diagnosis of right frontoparietal distribution stroke. DISCHARGE ACTIVE COMORBID CONDITIONS: 1. Bronchial asthma. 2. Hypertension. 3. Seizure disorder. 4. Alcoholism. REASON FOR ADMISSION: A 48-year-old right-handed female presented to [facility] on 08/28/2019, subsequent to fall around 2:30 am when she crawled to her bedroom and kept lying on the floor. In the morning, she called the primary care physician who advised her to present to the hospital. EMS responded and took her to [facility] where CT scan was done, which was reportedly abnormal. She was transferred to [facility] for further stroke evaluation. MRI was consistent with acute infarction involving the right posterior frontal parietal cortices. Duplex study of the carotid was negative for any significant stenosis. Echocardiogram revealed 75% ejection fraction with no PFO. Neurology service was consulted and the patient was allowed to have permissive hypertension, started on aspirin and statin. She was continued on hydrochlorothiazide and losartan as well. She was also counseled about the alcohol and tobacco cessation. She was diagnosed with UTI and started on Cipro. She passed her swallowing test, was on a regular diet with liquid. Physical examination revealed her to have left-sided weakness, decreased motor control, decreased balance, started on Lovenox for DVT prophylaxis. She has not traveled outside the [place] or had no contact with someone was is ill that has traveled outside the [place] in the last 21 days. The patient had not traveled to any area of the [place] that was experiencing known transmission of the [place] virus and has not had any close or personal contact with anyone else, and also she herself had no fever or any lower respiratory illness. LEVEL OF FUNCTION AT THE TIME OF ADMISSION: The patient was independent eating, required supervision for oral hygiene, toileting, and bathing. She required setup for upper body dressing, supervision for lower body dressing, set up for footwear. She was independent for rolling in bed, sit to lying, lying to sitting. She required supervision for sit to stand, chair transfer, toilet transfer, car transfer. She required partial assistance for walking 10 feet, 50 feet with 2 turns, walking 150 feet and also 10 feet on uneven surfaces. She required supervision for curb or step, 4 steps. She was unable to take 12 steps. She required partial assistance for picking up objects and wheelchair not applicable. ANTICIPATED REHAB GOALS: Anticipated rehab goals at the time of admission were to make her independent in all the modalities. LEVEL OF FUNCTION AT THE TIME OF DISCHARGE: The patient became independent in all the modalities and the wheelchair obviously was not applicable. HOSPITAL COURSE: During the hospitalization, she was involved with physical therapy and occupational therapy on a regular basis. No other consultants were involved at the time during the hospitalization. At the time of discharge, she was independently ambulating 10 feet, 50 feet with 2 turns independently and 150 feet standby assistance and using the cane. She was able to transfer in and out of chair independently. General physical examination remained stable. Neuro examination was compatible with left hemiparesis, but as mentioned above she was improving and definitely became more independent. At the time of discharge, her vital signs were stable. DISCHARGE INSTRUCTIONS: Discharge included the instruction to may shower. No driving. Diet as tolerated. DISCHARGE MEDICATIONS: As follows: 1. Docusate sodium 100 mg q.12 hours. 2. Albuterol sulfa
== END 2019-09-10 13:35 | disposition home or self-care (01) | DRG 57 ==
PROVIDERS: Admitting Provider Psychiatry & Neurology Neurology; PCP Internal Medicine; Visit Provider Psychiatry & Neurology Neurology
DX: I69.354 Hemiplegia and hemiparesis following cerebral infarction affecting left non-dominant side (principal); E78.5 Hyperlipidemia, unspecified; F10.20 Alcohol dependence, uncomplicated; F17.290 Nicotine dependence, other tobacco product, uncomplicated; G40.909 Epilepsy, unspecified, not intractable, without status epilepticus; J45.909 Unspecified asthma, uncomplicated; I10 Essential (primary) hypertension
CPT/HCPCS: 36415; 80048; 80061; 85025; 97110; 97116; 97161; 97165; 97530; 97535; A9270